=== PATIENT | male | born 1985 | race Two or more races ===

== ENCOUNTER 2017-05-22 14:10 | Emergency (ER) | payer SELFPAY ==
[~2017-05-22 14:10] MED LIST: LORTA5 PO; SSD1CRE EXT; Z.0.NO CURRENT MEDS
[2017-05-22 14:12] VITALS: BP 136/75; PULSE 67; RESP 15; TEMP 98.1; O2SAT 98
--- NOTE | 2017-05-22 14:20 | PD ---
HPI Chief Complaint: Wound/Suture/Staple Re-Check Time Seen by Provider: 14:17 Travel History International Travel<30 days: No Contact w/Intl Traveler<30days: No Traveled to known affect area: No History of Present Illness HPI 32-year-old male here for staple removal. A lorenzo lacerated his right forearm on a saws all 9 days ago. He had carmelita placed in the wound has been healing well. PFSH Social History Tobacco Use: No Allergies-Medications (Allergen,Severity, Reaction): Coded Allergies: No Known Allergies (Unverified , 06/13/12) Reported Meds & Prescriptions Reported Meds & Active Scripts Active Silvadene 50 Gm (Silver Sulfadiazine) 50 Applic/50 Gm Cr 50 Applic EXT DAILY Lortab 5/325 Tab (Hydrocodone-Acetaminophen) 1 Tab Tab 1 Tab PO Q6HPRN Reported No Current Meds (Miscellaneous Medication) Misc Review of Systems General / Constitutional: No: Fever Physical Exam Narrative GENERAL: Well-appearing male in no acute distress SKIN: Focused skin assessment warm/dry. Laceration on the right volar forearm well healed with carmelita intact HEAD: Normocephalic. CARDIOVASCULAR: Regular rate and rhythm. RESPIRATORY: No accessory muscle use. NEUROLOGICAL: Awake and alert. Normal speech. PSYCHIATRIC: Appropriate mood and affect; insight and judgment normal. Data Data Last Documented VS Vital Signs Date Time Temp Pulse Resp B/P Pulse Ox O2 Delivery O2 Flow Rate FiO2 05/22/17 14:12 98.1 67 15 136/75 98 MDM Medical Decision Making Medical Screen Exam Complete: Yes Emergency Medical Condition: Yes Medical Record Reviewed: Yes Differential Diagnosis 32-year-old male here for staple removal. Narrative Course Wound is well healed, carmelita removed Diagnosis Primary Impression: Removal of staple Referrals: Primary Care Physician as needed Med/Other Pt SpecificInfo: No Change to Meds Disposition: 01 DISCHARGE HOME Condition: Stable Marlyn Flanagan MD May 22, 2017 14:20
== END 2017-05-22 14:36 | disposition home or self-care (01) ==
LOC: NEPD 14:10
DX: S51.811D Laceration without foreign body of right forearm, subsequent encounter (principal); W31.2XXD Contact with powered woodworking and forming machines, subsequent encounter; Z48.02 Encounter for removal of sutures
CPT/HCPCS: 99281

== ENCOUNTER 2017-12-18 16:19 | Emergency (ER) | payer OTHER | END 2017-12-18 17:30 | disposition home or self-care (01) | LOC: NEPD 16:19 | DX: S93.422A Sprain of deltoid ligament of left ankle, initial encounter (principal); X50.9XXA Other and unspecified overexertion or strenuous movements or postures, initial encounter; Y99.0 Civilian activity done for income or pay | CPT/HCPCS: 29515; 73610; 99283-25 ==